=== PATIENT | male | born 1985 | race Caucasian/White ===

== ENCOUNTER 2024-07-06 | Emergency (ER) | payer BC, SELFPAY ==
[2024-07-06 00:04] VITALS: BP 145/91; PULSE 85; RESP 20; TEMP 36.6; O2SAT 96
--- NOTE | 2024-07-06 01:31 | ED.EYEPROB ---
HPI - Eye Problem General Chief complaint: Eye Problems Stated complaint: Right eye drainage, congestion, ear pain, [place] Time Seen by Provider: 07/06/24 01:24 History of Present Illness HPI Narrative: Patient presents here with 1 day of right eye drainage, he woke up and noticed there was lot of greenish gunk, was able to wipe some of it off, eye is slightly irritated; no recent trauma, no vision changes. Started to feel like it's going to the left eye also. Also having some pain to his ears, he has long history of ear infections. Related Data Allergies Allergy/AdvReac Type Severity Reaction Status Date / Time acetaminophen (From Percocet) Allergy Intermediate Hives Verified 07/06/24 00:07 oxycodone (From Percocet) Allergy Intermediate Hives Verified 07/06/24 00:07 Review of Systems Review of Systems: All systems reviewed & are unremarkable except as noted in HPI and below Exam Narrative: EXAMINATION OF ORGAN SYSTEMS/BODY AREAS: Constitutional: Vital signs per nursing GENERAL:[No acute distress, non-toxic appearing.] HEAD: Normal with no signs of head trauma. EYES: EOMI, injected conjunctiva bilaterally, right more than left, with some greenish discharge from the right eye, PERRL, VA intact ENT: Bulging erythematous left TM LUNGS: Nonlabored breathing. HEART: [Regular rate and rhythm] ABD: [Soft], [nontender to palpation] EXT: Normal range of motion SKIN: [No rashes or lesions.] NEURO: [Alert and oriented x 3. No gross focal sensory or strength deficits.] PSYCH: Normal affect Course Vital Signs Vital signs: Vital Signs Temperature 97.8 F 07/06/24 00:04 Pulse Rate 85 07/06/24 00:04 Respiratory Rate 20 07/06/24 00:04 Blood Pressure 145/91 H 07/06/24 00:04 Pulse Oximetry 96 07/06/24 00:04 Oxygen Delivery Room Air 07/06/24 00:04 Temperature 97.8 F 07/06/24 00:04 Pulse Rate 85 07/06/24 00:04 Respiratory Rate 20 07/06/24 00:04 Blood Pressure 145/91 H 07/06/24 00:04 Pulse Oximetry 96 07/06/24 00:04 Oxygen Delivery Room Air 07/06/24 00:04 MDM - Eye Problem MDM Narrative Medical decision making narrative: Patient presents here with right eye drainage, and ear pain. EOMI, injected conjunctiva bilaterally, right more than left, with some greenish discharge from the right eye, PERRL, VA intact L TM bulging Viral swabs neg. Symptoms consistent with conjunctivitis, will start ointment and antibiotics for eye and ear infection. Asked patient to follow-up with his PCP and return for any further issues especially if he has any changes in his vision or new eye pain. Lab Data Labs: Lab Results 07/06/24 Range/Units 01:20 Influenza A (RT-PCR) Negative (Negative) Influenza B (RT-PCR) Negative (Negative) RSV (RT-PCR) Negative (Negative) SARS-CoV-2 RNA (RT-PCR) Negative (Negative) Discharge Plan Discharge Clinical Impression: Conjunctivitis, Acute otitis media Patient Disposition: Home, Self-Care Condition: Stable Instructions: Ear Infection (ED), Conjunctivitis (ED) Additional Instructions: Please follow up with your doctor; you can always return for any further issues, especially if you have new pain to your eye or changes in your vision, go to the nearest emergency room immediately. Patient Language: Vietnamese Prescriptions: New ofloxacin 0.3 % drops 1 drp EACH EYE QID Qty: 5 0RF azithromycin 250 mg tablet 250 mg PO DAILY 4 Days Qty: 4 0RF Rx Instructions: start on day 2 of therapy fluticasone propionate [Allergy Relief (fluticasone)] 50 mcg/actuation spray,suspension 1 spray intranasal DAILY Qty: 16 0RF Rx Instructions: administer into each nostril Follow-up/Referrals: PHYSICIAN NOT ON STAFF,NONSTAFF [Primary Care Provider] -
--- OUTSIDE RECORDS SUMMARY | 2024-07-06 01:34 | XMS_ITS | Clinical Summary ---
Author Organization [facility] Address [address] [place] [address] Care Team Providers Care Marketing Automation Manager Name Role Phone Filippo Waite MD Primary Care Pro vider Allergies Active Allergy Reactions Criticality Noted Date Comments Oxycodone-Acetaminophen Hives Medium Medications albuterol sulfate 90 mcg/actuation aerosol powdr breath activated Inhale 180 mcg every 4 (four) hours Active omeprazole (PriLOSEC) 40 mg capsule Take 1 capsule (40 mg total) by mouth daily Take 30 min before breakfast 30 capsule 9 Active fluticasone propion-salmete rol (ADVAIR DISKUS) 250-50 mcg/dose diskus inhaler Inhale 1 puff 2 (two) times a day Rinse mouth with water after use. Do not swallow. Active acetaminophen (TYLENOL) 500 mg tablet Take 1 tablet (500 mg total) by mouth every 6 (six) hours as needed for pain 30 tablet 3 Active famotidine (PEPCID) 20 mg tablet Take 1 tablet (20 mg total) by mouth 2 (two) times a day 30 tablet 3 Active clonazePAM (KlonoPIN) 0.5 mg tablet Take 1 tablet (0.5 mg total) by mouth 2 (two) times a day 3 Active fluticasone propionate (FLONASE) 50 mcg/actuation nasal spray Administer 2 sprays into affected nostril(s) daily 2 Active Active Problems Problem Noted Date Diagnosed Date Treviño's esophagus with dysplasia 05/03/2019 Overview (05/03/2019): Added automatically from request for surgery [id number] Chronic gastritis without bleeding 03/08/2019 Overview (03/08/2019): Added automatically from request for surgery [id number] Chronic gastritis 10/25/2018 Overview (10/25/2018): Added automatically from request for surgery [id number] Nasal foreign body, initial encounter 08/05/2017 Surgical History Surgery Date Site/Laterality Comments ORAL SURGERY INCISION AND DRAINAGE 05/22/2012 - 05/21/2013 Left ; left lower leg UMBILICAL HERNIA REPAIR 03/22/2018 - 04/20/2018 UPPER GASTROINTESTINAL ENDOSCOPY Medical History Medical History Date Comments GERD (gastroesophageal reflux disease) History of bronchitis Current every day smoker Esophagitis 10/2018 Asthma Kidney stone Treviño's esophagus Hyperlipidemia Depression Family History Medical History Relation Name Comments Hypothyroidism Mother Asthma Neg Hx Coronary artery disease Neg Hx Stroke Neg Hx Relation Name Status Comments Mother Social History Tobacco Use Types Packs/Day Years Used Date Smoking Tobacco: Every Day Cigarettes 1 10 Smokeless Tobacco: Never Tobacco Cessation:Ready to Q uit: Not Asked; Counseling Given: Not Answered Comments:Typically use 1 pack per day for 10 years Alcohol Use Standard Drinks/Week Comments No 0 (1 standard drink = 0.6 oz pur e alcohol) Personal Safety Answer Date Recorded Getting School Help Needed Not on file 01/06 Sex and Gender Information Value Date Recorded Sex Assigned at Not on file Legal Sex 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 Gender Identity Not on file Sexual Orientation Not on file 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 Not on file Not on file Not o n file Obstetrics History Last Filed Vital Signs Vital Sign Reading Time Taken Comments Blood Pressure 124/81 01/04/2023 9:10 AM CDT Pulse 73 01/04/2023 9:10 AM CDT Temperature 36.2 C (97.2 F) 01/04/2023 8:50 AM CDT Respiratory Rate 22 01/04/2023 9:10 AM CDT Oxygen Saturation 98% 01/04/2023 9:10 AM CDT Inhaled Oxygen Concentration - - Weight 86.2 kg (190 lb) 01/04/2023 7:46 AM CDT Height 180.3 cm (5' 11 ) 01/04/2023 7:46 AM CDT Body Mass Index 26.5 01/04/2023 7:46 AM CDT Plan of Treatment Health Maintenance Due Date Last Done Comments Depression Screening 1985 Hepatitis C Screening 1985 Pneumococcal vaccine <65 (1 of 2 - PCV) 1992 Varicella Vaccines (1 of 2 - 13+ 2-dose series) 08/23/1999 Regular Well Visit/Exam 18-64 2004 DTaP/Tdap/Td Vaccine (2 - Td or Tdap) 04/29/2023 04/29/2013 Influenza Vaccine (#1) 2024 8, 01/07/2017 Hepatitis B Screening Completed 09/16/1999 HPV Vaccines Aged Out No longer eligi ble based on patient's age to complete this topic Insurance Space Pencil OPEN ACCESS CIG [facility] COMMERCIAL GENERIC CIGNA [facility] ANTHEM ACCESS CHOICE BLUE ACC CHOICE OOS [facility] [facility] CHOICE OOS [employer] [facility] CHOICE OOS Advance Directives For more information, please contact: [phone] * Full Code (Latest Code Status on File) Date Activated Date Inactivated Comments 01/04/2023 7:41 AM 01/04/2023 1:33 PM * Full Code Date Activated Date Inactivated Comments 05/31/2019 7:33 AM 05/31/2019 1:06 PM * Full Code Date Activated Date Inactivated Comments 03/14/2019 6:41 AM 03/14/2019 12:42 PM * Full Code Date Activated Date Inactivated Comments 10/31/2018 8:01 AM 10/31/2018 1:56 PM Care Teams Marketing Automation Manager Relationship Specialty [place] [address] [facility] [address] [place] [address] PCP - General Internal Medicine 07/18/22
--- OUTSIDE RECORDS SUMMARY | 2024-07-06 01:34 | XMS_ITS | Encounter Summary ---
Author Organization [facility] Address [address] [place] [address] Phone Care Team Providers Care Steel Buffer Name Role Phone No, Physician Primary Care Provider [phone] Pema Redd MD Primary Care Provider [phone] No, Physician Primary Care Provider Physician, None Primary Care Provider Filippo Rascon MD Primary Care Pro vider Encounter Details Date Type Department Care Team (Late st Contact Info) Description 03/14/2019 Orders Only [facility] Scanning, Provider Social History Tobacco Use Types Packs/Day Years Used Date Smoking Tobacco: Every Day Cigarettes Smokeless Tobacco: Never Alcohol Use Standard Drinks/Week Comments No 0 (1 standard drink = 0.6 oz pur e alcohol) Sex and Gender Information Value Date Recorded Sex Assigned at Not on file Legal Sex Male 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 Gender Identity Not on file Sexual Orientation Not on file 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 Needs nasal swabs x2 and swabs of any chronic open wounds. Sue Begumd, SCHOOL CLEANER 10/22/2018 10/31/18 nares MRSA PCR= negative 03/14/19 nares MRSA PCR= negative 05/02/2013 05/02/20132018 7:33 AM CDT COVID: Suspected 05/04/2020 05/04/2020 05/04/2020 10:35 AM CRYSTALLOGRAPHER Respiratory Infection (RENARD), contact + droplet Comment:Automatically added due to negative COVID-19 result. 05/04/2020 05/04/2020 05/18/2020 3:0 6 AM CRYSTALLOGRAPHER COVID19 Comment:Added from the Screening question BPA, identifying patients that tested positive for COVID in the last 14 days and the result is from a facility outside [facility] . 07/18/2022 07/18/2022 07/28/2022 3:05 AM CRYSTALLOGRAPHER documented as of this encounter Care Teams Steel Buffer Relationship Specialty Start Date End Date No, Physician PCP - General 08/05/17 05/29/19 Pema Redd MD PCP - General 05/30/19 05/30/19 No, Physician PCP - General 05/31/19 05/03/20 Physician, [place] [address] PCP - General 05/04/20 07/17/22 [place] [id number] [facility] [address] [place] [address] PCP - General Internal Medicine 07/18/22 documented as of this encounter
--- OUTSIDE RECORDS SUMMARY | 2024-07-06 01:34 | XMS_ITS | Referral Summary ---
Author Organization [facility] Address [address] [place] [address] Care Team Providers Care Irrigator Head Name Role Phone Unavailable Primary Care Provider Unavailabl e Source Comments [facility],non-owned Affiliates and Associated Physician Practices is amultiple site organization consisting of ambulatory clinics and hospital sitesin [place], [place], [place] and [place]. This disclosure is being madepursuant to the Care Everywhere program and may not contain all information available regarding this patient. Last updated 18.[facility] Allergies Active Allergy Reactions Criticality Noted Date Comments Oxycodone-Acetaminophen Rash Medium 06/09/2018 Medications * Be aware that medications may not be up to date on this document. Alwaysverify current medications with the patient. Medication Sig Dispensed Refills Start Date End Date Status omeprazole (PRILOSEC) 20 MG capsule Take 20 mg by mouth daily before breakfast Active Immunizations Name Administration Dates Next Due TDAP (7yrs+) 04/29/2013 Social History Tobacco Use Types Packs/Day Years Used Date Smoking Tobacco: Every Day Smokeless Tobacco: Never Alcohol Use Standard Drinks/Week Comments Yes 0 (1 standard drink = 0.6 oz pur e alcohol) Sex and Gender Information Value Date Recorded Sex Assigned at Not on file Gender Identity Not on file Sexual Orientation Not on file Last Filed Vital Signs Vital Sign Reading Time Taken Comments Blood Pressure 144/91 02/27/2019 3:27 AM CDT Pulse 56 02/27/2019 4:23 AM CDT Temperature 36.7 C (98 F) 02/27/2019 3:27 AM CDT Respiratory Rate 18 02/27/2019 4:13 AM CDT Oxygen Saturation 99% 02/27/2019 4:42 AM CDT Inhaled Oxygen Concentration 21% 02/27/2019 4 :13 AM CDT Weight 86.2 kg (190 lb) 02/27/2019 3:27 AM CDT Height 182.9 cm (6') 02/27/2019 3:27 AM CDT Body Mass Index 25.77 02/27/2019 3:27 AM CDT Plan of Treatment Not on file Dougie Gipson Personal/Family Self 1985 [address] [place] [address]
--- OUTSIDE RECORDS SUMMARY | 2024-07-06 01:34 | XMS_ITS | Patient Health Summary ---
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 Tendon involvement: none Nerve involvement: none Vascular damage: no Anesthesia: local infiltration Local anesthetic: lidocaine 1% without epinephrine Patient sedated: no Preparation: Patient was prepped and draped in the usual sterile fashion. Amount of cleaning: standard Debridement: none Degree of undermining: none Mucous membrane closure: 6-0 Chromic gut Number of sutures: 2 Technique: simple Approximation: close Approximation difficulty: simple Patient tolerance: Patient tolerated the procedure well with no immediate complications Lab Interpretation Oxygen Saturation Interpretation The oxygen saturation level is: 99%. The patient was on Room Air for the saturation measurement. Measurement frequency: Spot Check. Oxygen saturation interpretation is Normal. Intervention(s) used: None. No results found for this visit on 11/09/13. CT HEAD NON CONTRAST (Canceled) CT BRAIN FACIAL BONES WO CONTRAST (Results Pending) Result: No Fracture. Minimal mucosal thickening in the paranasal sinuses bilaterally. No air-fluid levels. There may be some mild edema in the permandibular subcutaneous soft tissues bilaterally. Mild cellulitis possible. No CT evidence of acute intracranial hemorrhage or skull fracture. Progress Notes 2:09 AM: Recheck on patient at this time. I have informed the pt of the results and the diagnosis for the patient's discharge. I have given instructions regarding the diagnosis as well as any return precautions and have supplemented the patient with follow up instructions. Any medications given to patient are to be taken accordingly. Patient agrees with plan for discharge and all questions and concerns have been addressed at this point. [place] [id number] [address] [id number] Call in 1 day New Prescriptions CEPHALEXIN (KEFLEX) 500 MG CAPSULE Take 1 Cap by mouth 4 times daily for 5 days. NAPROXEN (NAPROSYN) 500 MG TABLET Take 1 Tab by mouth 2 times daily as needed for Pain. ED Course Medical Decision Making I have reviewed the: Previous Chart, Nursing Notes and Vitals. I have interpreted the following results: CT Scans and Oxygen Saturation. Orders Placed This Encounter ED LACERATION REPAIR ED LACERATION REPAIR CT BRAIN FACIAL BONES WO CONTRAST lidocaine (XYLOCAINE) 1% injection ADS Med naproxen (NAPROSYN) 500 MG tablet cephALEXin (KEFLEX) 500 MG capsule Clinical Impression Encounter Diagnoses Name Primary? Trauma Laceration of lip, initial encounter 2:09 AM Patient is discharged in stable condition. At the present time, a medical screening exam has been completed. It is determined that the patient does not have an emergency medical condition, and is stable for discharge. Disposition: Discharged I have reviewed the information recorded by the scribe and agree with its accuracy and contents--Dr. Pate Transcribed by Matt Gatica acting scribe on behalf of Dr. Pate Korey Pate MD PROCEDURE/MINOR SURG ICAL ORDERABLES * CT BRAIN FACIAL BONES WO CONTRAST (11/10/2013 1:32 AM CDT) Anatomical Region Laterality Modality Head Computed Tomogra phy 11/10/2013 7:28 AM CDT Narrative 11/10/2013 8:[address] BRAIN AND FACIAL BONES HISTORY: Injury and bleeding. TECHNIQUE: Multiple contiguous axial images of the brain and facial bones were obtained without contrast. CT FACIAL BONES: There is mucous membrane thickening and questionable polyp within the left maxillary sinus and minimal mucous membrane thickening in the right maxillary sinus. Paranasal sinuses and mastoid air cells are normal. There is no evidence of fracture or dislocation. DIAGNOSIS: Minimal bilateral maxillary sinus disease. CT BRAIN: There is no mass or hemorrhage or midline shift. Cerebral sulci and ventricles are normal. Shea-white differentiation is preserved DIAGNOSIS: No acute intracranial process. Edited by Sandra Mckeon on 11/10/2013 7:51 AM Procedure Note Petar Martinez MD - 11/10/2013 CT BRAIN AND FACIAL BONES HISTORY: Injury and bleeding. TECHNIQUE: Multiple contiguous axial images of the brain and facial bones were obtained without contrast. CT FACIAL BONES: There is mucous membrane thickening and questionable polyp within the left maxillary sinus and minimal mucous membrane thickening in the right maxillary sinus. Paranasal sinuses and mastoid air cells are normal. There is no evidence of fracture or dislocation. DIAGNOSIS: Minimal bilateral maxillary sinus disease. CT BRAIN: There is no mass or hemorrhage or midline shift. Cerebral sulci and ventricles are normal. Shea-white differentiation is preserved DIAGNOSIS: No acute intracranial process. Edited by Sandra Mckeon on 11/10/2013 7:51 AM Korey Pate MD CT ORDERABLES * ED INCISION AND DRAINAGE (04/29/2013 4:59 PM DIRECTOR OF EMPLOYER SERVICES) Narrative Korey Pate MD - 04/29/2013 4:59 PM DIRECTOR OF EMPLOYER SERVICES Korey Pate MD 04/29/2013 4:59 PM Provider contact with the patient: 04/29/2013 16:38 Dougie Gipson [id number] [facility] History Chief Complaint Patient presents with Abscess left leg abscess x 5 days, progressively getting larger, given antibiotics, no relief Abscess The history is provided by the patient. This is a new problem. The current episode started less than one week ago. The onset was gradual. The problem occurs continuously. The problem has been gradually worsening. The abscess location is on the left leg.The problem is mild. The abscess is characterized by itchiness, redness, painfulness, draining and swelling. It is unknown what he was exposed to. There has been no fever.The relevant past medical history includes abscess.His tetanus status is out of date. The symptoms are aggravated by squeezing. The symptoms are relieved by drainage. He has tried antibiotics (Bactrim) for the symptoms. The treatment provided no relief. No past medical history on file. No past surgical history on file. No family history on file. History Social History Marital Status: Single Spouse Name: N/A Number of Children: N/A Years of Education: N/A Occupational History Not on file. Social History Main Topics Smoking status: Not on file Smokeless tobacco: Not on file Alcohol Use: Not on file Drug Use: Not on file Sexually Active: Not on file Other Topics Concern Not on file Social History Narrative No narrative on file Review of Systems Review of Systems Constitutional: Negative for fever and chills. Eyes: Negative for blurred vision, double vision and redness. Respiratory: Negative for cough and shortness of breath. Cardiovascular: Negative for chest pain and palpitations. Gastrointestinal: Negative for nausea, vomiting and diarrhea. Genitourinary: Negative for urgency, frequency and hematuria. Neurological: Negative for tingling, sensory change and headaches. All other systems reviewed and are negative. Physical Exam BP 131/71 Pulse 80 Temp 98.3 F Resp 18 Ht 1.803 m (5' 11 ) Wt 79.379 kg (175 lb) BMI 24.41 kg/m2 SpO2 100% Physical Exam Nursing note and vitals reviewed. Constitutional: He is oriented to person, place, and time and well-developed, well-nourished, and in no distress. HENT: Head: Normocephalic and atraumatic. Right Ear: External ear normal. Left Ear: External ear normal. Nose: Nose normal. Mouth/Throat: Oropharynx is clear and moist. No oropharyngeal exudate. Eyes: Conjunctivae normal and EOM are normal. Pupils are equal, round, and reactive to light. Neck: Normal range of motion. Neck supple. Cardiovascular: Normal rate, regular rhythm, normal heart sounds and intact distal pulses. Pulmonary/Chest: Effort normal and breath sounds normal. Abdominal: Soft. Bowel sounds are normal. Musculoskeletal: Normal range of motion. Neurological: He is alert and oriented to person, place, and time. GCS score is 15. Skin: Skin is warm and dry. Medications Current Outpatient Prescriptions Medication Status Sig Dispense Refill traMADol (ULTRAM) 50 MG tablet Active Take 1 Tab by mouth every 4 hours as needed for Pain for 10 days. 20 Tab 0 oxycodone-aspirin (PERCODAN) 4.5-0.38-325 MG tablet Active Take 1 Tab by mouth every 4 hours as needed for Pain. 20 0 Procedures Incision and Drainage Date/Time: 04/29/2013 4:58 PM Performed by: KOREY PATE Authorized by: KOREY PATE Consent: Verbal consent obtained. Written consent obtained. Risks and benefits: risks, benefits and alternatives were discussed Consent given by: patient Patient understanding: patient states understanding of the procedure being performed Patient consent: the patient's understanding of the procedure matches consent given Site marked: the operative site was marked Required items: required blood products, implants, devices, and special equipment available Patient identity confirmed: verbally with patient and arm band Type: abscess Body area: lower extremity Location details: left leg Anesthesia: local infiltration Local anesthetic: lidocaine 1% without epinephrine Anesthetic total: 2 ml Patient sedated: no Scalpel size: 11 Incision type: single straight Complexity: simple Drainage amount: scant Wound treatment: wound left open Packing material: none Patient tolerance: Patient tolerated the procedure well with no immediate complications. EKG Interpretation Lab/SPO2 Interpretation Results for orders placed during the hospital encounter of 04/29/13 CBC W AUTO DIFFERENTIAL Component Value Range WBC 10.3 4.4-10.7 x10^9/L RBC 4.89 3.80-5.40 x10^12/L Hgb 15.2 12.0-17.6 gm/dL HCT 43.5 35.2-51.7 % MCV 89.0 80.7-98.3 fl MCH 31.1 26.7-34.0 pg MCHC 34.9 30.8-35.9 gm/dL Plt Ct 213 153-416 x10^9/L RDW-CV 13.0 12.1-14.9 % MPV 10.9 9.4-12.9 fl Neutro 69.1 44.0-73.0 % Lymph 22.5 20.0-43.0 % Bath 7.3 5.0-13.0 % Eos 0.8 0.0-6.0 % Baso 0.2 0.0-2.0 % Immature Grans 0.1 0-1 % Neutro Abs 7.14 2.01-7.14 x10^9/L Lymph Abs 2.32 1.07-3.94 x10^9/L Bath Abs 0.75 0.26-1.07 x10^9/L Eosin Abs 0.08 0-0.47 x10^9/L Baso Abs 0.02 0-0.08 x10^9/L Immature Grans Abs 0.01 0.00-0.06 x10^9/L NRBC Auto 0 Progress Notes 4:59 PM will d/c home to f/u w pcp. Will cont Bactrim as prescribed. 4:59 PM: At this present time, a medical screening exam has been completed. It is determined that the patient does not have an emergency medical condition and is stable for discharge. New Prescriptions TRAMADOL (ULTRAM) 50 MG TABLET Take 1 Tab by mouth every 4 hours as needed for Pain for 10 days. Follow-up with: [facility] [id number] [facility] [id number] Call in 1 day DISCHARGED HOME ED Course Medical Decision Making I have reviewed the: Previous Chart, Nursing Notes and Vitals. I have interpreted the following results: Labs and Oxygen Saturation. Orders Placed This Encounter ED INCISION AND DRAINAGE CBC W AUTO DIFFERENTIAL lidocaine (XYLOCAINE) 1% injection ADS Med gqivmzg-yctyax-zfszb pertussis (BOOSTRIX) injection 0.5 mL traMADol (ULTRAM) 50 MG tablet Clinical Impression Encounter Diagnosis Name Primary? Abscess of left leg Yes Procedure Note Korey Pate MD - 04/29/2013 4:38 PM CST Images from the original note were not included. Provider contact with the patient: 04/29/2013 16:38 Dougie Gipson [id number] [facility] History Chief Complaint Patient presents with Abscess left leg abscess x 5 days, progressively getting larger, givenantibiotics, no relief Abscess The history is provided by the patient. This is a new problem. The currentepisode started less than one week ago. The onset was gradual. The problemoccurs continuously. The problem has been gradually worsening. The abscesslocation is on the left leg.The problem is mild. The abscess ischaracterized by itchiness, redness, painfulness, draining and swelling.It is unknown what he was exposed to. There has been no fever.The relevantpast medical history includes abscess.His tetanus status is out of date.The symptoms are aggravated by squeezing. The symptoms are relieved bydrainage. He has tried antibiotics (Bactrim) for the symptoms. Thetreatment provided no relief. No past medical history on file. No past surgical history on file. No family history on file. History Social History Marital Status: Single Spouse Name: N/A Number of Children: N/A Years of Education: N/A Occupational History Not on file. Social History Main Topics Smoking status: Not on file Smokeless tobacco: Not on file Alcohol Use: Not on file Drug Use: Not on file Sexually Active: Not on file Other Topics Concern Not on file Social History Narrative No narrative on file Review of Systems Review of Systems Constitutional: Negative for fever and chills. Eyes: Negative for blurred vision, double vision and redness. Respiratory: Negative for cough and shortness of breath. Cardiovascular: Negative for chest pain and palpitations. Gastrointestinal: Negative for nausea, vomiting and diarrhea. Genitourinary: Negative for urgency, frequency and hematuria. Neurological: Negative for tingling, sensory change and headaches. All other systems reviewed and are negative. Physical Exam BP 131/71 Pulse 80 Temp 98.3 F Resp 18 Ht 1.803 m (5' 11 ) Wt79.379 kg (175 lb) BMI 24.41 kg/m2 SpO2 100% Physical Exam Nursing note and vitals reviewed. Constitutional: He is oriented to person, place, and time andwell-developed, well-nourished, and in no distress. HENT: Head: Normocephalic and atraumatic. Right Ear: External ear normal. Left Ear: External ear normal. Nose: Nose normal. Mouth/Throat: Oropharynx is clear and moist. No oropharyngeal exudate. Eyes: Conjunctivae normal and EOM are normal. Pupils are equal, round, andreactive to light. Neck: Normal range of motion. Neck supple. Cardiovascular: Normal rate, regular rhythm, normal heart sounds andintact distal pulses. Pulmonary/Chest: Effort normal and breath sounds normal. Abdominal: Soft. Bowel sounds are normal. Musculoskeletal: Normal range of motion. Neurological: He is alert and oriented to person, place, and time. GCSscore is 15. Skin: Skin is warm and dry. Medications Current Outpatient Prescriptions Medication Status Sig Dispense Refill traMADol (ULTRAM) 50 MG tablet Active Take 1 Tab by mouth every 4 hoursas needed for Pain for 10 days. 20 Tab 0 oxycodone-aspirin (PERCODAN) 4.5-0.38-325 MG tablet Active Take 1 Tab bymouth every 4 hours as needed for Pain. 20 0 Procedures Incision and Drainage Date/Time: 04/29/2013 4:58 PM Performed by: KOREY PATE Authorized by: KOREY PATE Consent: Verbal consent obtained. Written consent obtained. Risks and benefits: risks, benefits and alternatives were discussed Consent given by: patient Patient understanding: patient states understanding of the procedure beingperformed Patient consent: the patient's understanding of the procedure matchesconsent given Site marked: the operative site was marked Required items: required blood products, implants, devices, and specialequipment available Patient identity confirmed: verbally with patient and arm band Type: abscess Body area: lower extremity Location details: left leg Anesthesia: local infiltration Local anesthetic: lidocaine 1% without epinephrine Anesthetic total: 2 ml Patient sedated: no Scalpel size: 11 Incision type: single straight Complexity: simple Drainage amount: scant Wound treatment: wound left open Packing material: none Patient tolerance: Patient tolerated the procedure well with no immediatecomplications. EKG Interpretation Lab/SPO2 Interpretation Results for orders placed during the hospital encounter of 04/29/13 CBC W AUTO DIFFERENTIAL Component Value Range WBC 10.3 4.4-10.7 x10^9/L RBC 4.89 3.80-5.40 x10^12/L Hgb 15.2 12.0-17.6 gm/dL HCT 43.5 35.2-51.7 % MCV 89.0 80.7-98.3 fl MCH 31.1 26.7-34.0 pg MCHC 34.9 30.8-35.9 gm/dL Plt Ct 213 153-416 x10^9/L RDW-CV 13.0 12.1-14.9 % MPV 10.9 9.4-12.9 fl Neutro 69.1 44.0-73.0 % Lymph 22.5 20.0-43.0 % Bath 7.3 5.0-13.0 % Eos 0.8 0.0-6.0 % Baso 0.2 0.0-2.0 % Immature Grans 0.1 0-1 % Neutro Abs 7.14 2.01-7.14 x10^9/L Lymph Abs 2.32 1.07-3.94 x10^9/L Bath Abs 0.75 0.26-1.07 x10^9/L Eosin Abs 0.08 0-0.47 x10^9/L Baso Abs 0.02 0-0.08 x10^9/L Immature Grans Abs 0.01 0.00-0.06 x10^9/L NRBC Auto 0 Progress Notes 4:59 PM will d/c home to f/u w pcp. Will cont Bactrim as prescribed. 4:59 PM: At this present time, a medical screening exam has beencompleted. It is determined that the patient does not have an emergencymedical condition and is stable for discharge. New Prescriptions TRAMADOL (ULTRAM) 50 MG TABLET Take 1 Tab by mouth every 4 hours asneeded for Pain for 10 days. Follow-up with: [facility] [id number] [facility] [id number] Call in 1 day DISCHARGED HOME ED Course Medical Decision Making I have reviewed the: Previous Chart, Nursing Notes and Vitals. I have interpreted the following results: Labs and Oxygen Saturation. Orders Placed This Encounter ED INCISION AND DRAINAGE CBC W AUTO DIFFERENTIAL lidocaine (XYLOCAINE) 1% injection ADS Med obwyxey-hsuegc-qxezs pertussis (BOOSTRIX) injection 0.5 mL traMADol (ULTRAM) 50 MG tablet Clinical Impression Encounter Diagnosis Name Primary? Abscess of left leg Yes Korey Pate MD PROCEDURE/MINOR SURG ICAL ORDERABLES
--- OUTSIDE RECORDS SUMMARY | 2024-07-06 01:34 | XMS_ITS | Clinical Summary ---
Author Organization [facility] Address [address] [place] [address] Care Team Providers Care Shopper Marketing Manager Name Role Phone Unavailable Primary Care Provider Unavailabl e Source Comments [facility],non-owned Affiliates and Associated Physician Practices is amultiple site organization consisting of ambulatory clinics and hospital sitesin [place], [place], [place] and [place]. This disclosure is being madepursuant to the Care Everywhere program and may not contain all information available regarding this patient. Last updated 18.[facility] Allergies Active Allergy Reactions Criticality Noted Date [...] 02/27/2019 3:27 AM CDT Plan of Treatment Health Maintenance Due Date Last Done Comments HIV SCREENING 2001 HEPATITIS C SCREENING 08/17/2004 HEPATITIS B VACCINE (1 of 3 - 19+ 3-dose series) 2005 PNEUMOCOCCAL VACCINE (1 of 2 - PCV) 2005 DTAP/TDAP/TD VACCINES (2 - T d or Tdap) 04/29/2023 04/29/2013 COVID-19 VACCINE (1 - 2023-2 5 season) 2024 INFLUENZA VACCINE (#1) 2024 , 01/07/2017 DEPRESSION SCREENING 05/22/2024 ZOSTER VACCINE (1 of 2) 2036 HIB VACCINE Aged Out No longer eligi ble based on patient's age to complete this topic HPV VACCINE Aged Out No longer eligi ble based on patient's age to complete this topic MENINGOCOCCAL (Group B) VACCINE Aged Out No longer eligible b ased on patient's age to complete this topic MENINGOCOCCAL VACCINE Aged Out No antonette sophy eligible based on patient's age to complete this topic Dougie Gipson Personal/Family Self [phone] [place] [address]
--- OUTSIDE RECORDS SUMMARY | 2024-07-06 01:34 | XMS_ITS | Referral Summary ---
Author Organization [facility] Address [address] [place] [address] Care Team Providers Care Hospice Volunteer Name Role Phone Filippo Waite MD Primary [...] (05/03/2019): Added automatically from request for surgery [id number] Chronic gastritis without bleeding 03/08/2019 Overview (03/08/2019): Added automatically from request for surgery [id number] Chronic gastritis 10/25/2018 Overview (10/25/2018): Added automatically from request for surgery [id number] Nasal foreign body, initial encounter 08/05/2017 Social History Tobacco Use Types Packs/Day Years [...] on file 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 Gender Identity Not on file Sexual Orientation Not on file 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 on file Not on file Not o n file Last Filed Vital Signs Vital Sign [...] 01/04/2023 7:46 AM CDT Plan of Treatment Not on file Insurance [employer] OPEN ACCESS [employer] C[employer]ER[employer] GENERIC Member Subscriber Plan / Payer ( fective 2018-Present) Name:Mando Guillen Relation to Subscriber:Self Name:Mando Guillen Payer ID:[id number] Type:COMMERCIAL Address: [address] [place] [id number] [employer] [facility] ACCESS CHOICE Member Subscriber Plan / Payer (Ef fective 2018-Present) Name:Mando Guillen Relation to Subscriber:Self Name:Mando Guillen Payer ID:[id number] (NAIC) Type:TravelAI Address: [address] CHOICE OOS BLUE [facility] CHOICE OOS BLUE ACC CHOICE OOS Advance Directives For more information, please contact: [phone] * Full Code (Latest Code Status on File) Date Activated Date Inactivated Comments 01/04/2023 7:41 AM 01/04/2023 1:33 PM * Full Code Date Activated Date Inactivated Comments 05/31/2019 7:33 AM 05/31/2019 1:06 PM * Full Code Date Activated Date Inactivated Comments 03/14/2019 6:41 AM 03/14/2019 12:42 PM * Full Code Date Activated Date Inactivated Comments 10/31/2018 8:01 AM 10/31/2018 1:56 PM Care Teams Hospice Volunteer Relationship Specialty [place] [id number] [place] [address] PCP - General Internal Medicine 07/18/22
--- OUTSIDE RECORDS SUMMARY | 2024-07-06 01:34 | XMS_ITS | Clinical Summary ---
Author Organization [facility] Address [address] [place] [address] Care Team Providers Care Engineering Associate Name Role Phone Filippo Waite MD Primary Care Provider [phone] Allergies Active Allergy Reactions Criticality Noted Date Comments Amoxicillin-Pot Clavulanate Abdominal Pain Medium 03/31/2021 Oxycodone-Acetaminophen Hives,Itching High 6 Sertraline Hallucination High 12/20/2022 Really bad night rich Medications albuterol sulfate 90 mcg/Actuation inhalerIndicat ions:Cough Take 2 to 4 puffs by inhalation every 4 hours as needed for cough, shortness of breath, or wheezing 8.5 Gram Active albuterol (PROVENTIL,DE TOLIN) 2.5 mg /3 mL (0.083 %) Solution for NebulizationIn dications:Mode rate persistent asthma, unspecified whether complicated Take 3 mL (2.5 mg) by inhalation every 6 hours as needed for Shortness of Breath. 90 mL Active Additional Information Patient taking differently:2.5 mg InhalationEVERY 4 HOURS PRN RESPIRATORY, Shortness of Breath, Reported on 08/08/2022 omeprazole (PriLOSEC) 40 mg Capsule, Delayed Release(E.C.)I ndications:Bar rett's esophagus without dysplasia,Sergio roesophageal reflux disease with esophagitis Take 1 Capsule (40 mg) by mouth daily. TAKES IN AFTERNOON 90 Capsule Active fluticasone propionate (FLONASE) 50 mcg/spray [place], Suspension nasal inhaler Administer 2 Sprays in each nostril daily. 16 Gram 022 Active acetaminophen (TYLENOL) 500 mg tablet Take 1,500 mg by mouth every 4 hours as needed. 023 Active nicotine (NICODERM CQ) 7 mg/24 hr patchIndicatio ns:Tobacco use Apply 1 Patch to skin as directed every 24 hours. 14 Patch 023 Active fluticasone propion-salmet Gian (ADVAIR DISKUS,WIXELA INHUB) 500-50 mcg/dose disk inhalerIndicat ions:Asthma, unspecified asthma severity, unspecified whether complicated, unspecified whether persistent Take 1 Puff by inhalation 2 times daily. 60 Each 5 024 Active guaiFENesin (MUCINEX) 600 mg Extended Release Biphasic tabletIndicati ons:Chronic sinusitis, unspecified location Take 1 Tablet (600 mg) by mouth 2 times daily. 40 Tablet 024 Active varenicline (CHANTIX) 0.5 mg (11)- 1 mg (42) tablets STARTER dose packIndication s:Tobacco use Take as directed on package. 53 Tablet 024 Active sodium chloride (OCEAN) 0.65 % Aerosol, [place] Administer 2 Sprays in each nostril PRN for Allergies. In each nostril helps with ear problem Active lamoTRIgine (LaMICtal) 100 mg tabletIndicati ons:Moderate episode of recurrent major depressive disorder (CMS/HCC) Take 1 Tablet (100 mg) by mouth daily. 90 Tablet 3 024 Active chlorhexidine gluconate 0.12 % Mouthwash RINSE AND GARGLE 10 ML BY MOUTH THREE TIMES DAILY 473 mL 3 024 Active clonazePAM (KlonoPIN) 1 mg tabletIndicati ons:Panic attacks TAKE 1 TABLET BY MOUTH THREE TIMES DAILY NEEDED FOR ANXIETY 90 Tablet 025 Active valACYclovir (Valtrex) 1 gram tabletIndicati ons:Cold sore Take 1 Tablet by mouth 2 times daily for 10 days. 20 Tablet 023 2024 Discontinued valACYclovir (VALTREX) 1 gram tabletIndicati ons:Cold sore TAKE 1 TABLET BY MOUTH TWICE DAILY FOR 10 DAYS 20 Tablet 025 2024 Active Problems Problem Noted Date Diagnosed Date Leukocytosis (leucocytosis) 01/19/2021 Enteric intussusception 01/18/2021 Treviño's esophagus without dysplasia 08/08/2019 Prediabetes 05/24/2019 Superficial thrombophlebitis 05/20/2019 Recurrent major depression 05/13/2019 Generalized anxiety disorder 05/13/2019 Panic attacks 05/13/2019 Epididymoorchitis 10/30/2018 Chronic gastritis 10/25/2018 Overview (11/11/2019): Added automatically from request for surgery [id number] Added automatically from request for surgery [id number] Right testicular pain 03/09/2018 Epigastric abdominal pain 03/09/2018 Umbilical hernia without obstruction and without gangrene 03/07/2018 Chronic vomiting 01/07/2016 Gastroesophageal reflux disease 01/06/2016 Tobacco use 01/06/2016 Asthma Encounters Date Type Department Care Team Description 06/23/[address] [address] Filippo Waite MD Cold sore 06/13/2024 External Device Data [facility] ABSTRACTION Provider, Abstract 06/04/2024 External Device Data [facility] Provider, Abstract 05/28/[address] [address] Filippo Waite MD Panic attacks 04/23/[address] [address] Filippo Waite MD 04/20/[address] [phone] Filippo Waite MD Panic attacks from Last 3 Months Immunizations Immunization Administration Dates Next Due (ADACEL/BOOSTRIX)(10 YR UP) TDAP VACCINE, 0.5ML, IM 04/29/2013 (GARDASIL 9)(9-45 YRS) HUMAN PAPILLOMAVIRUS VACCINE, TYPES 6, 11, 16, 18, 31, 33, 45, 52, 58, NONAVALENT (9VHPV), 2 OR 3 DOSE, IM 09/06/2021 (RECOMBIVAX HB/ENGERIX-B)(0- 19 YRS) HEPATITIS B VACCINE 5 MCG/0.5 ML OR 10 MCG/0.5 ML PED OR ADOL 3 DOSE (PF), IM 09/16/1999 INFLUENZA VACCINE QUADRIVALENT 3 YR UP PF IM INFLUENZA VACCINE QUADRIVALENT 6 MOS UP IM 01/07 INFLUENZA VACCINE QUADRIVALENT 6 MOS UP PF IM Family History Medical History Relation Name Comments Heart Disease Father unknown type Breast Cancer Maternal Aunt 1 also in the lymph nodes Cancer Maternal Aunt 2 unknown type , in the bones Other Mother aneurysm in he r stomach Thyroid Disease Mother Graves Celiac Disease Neg Hx Colon Cancer Neg Hx Colon Polyps Neg Hx Crohn's Disease Neg Hx Hemochromatosis Neg Hx Liver Cancer Neg Hx Liver Disease Neg Hx Ovarian Cancer Neg Hx Pancreatic Cancer Neg Hx Ulcerative Colitis Neg Hx Uterine Cancer Neg Hx Relation Name Status Comments Father Maternal Aunt 1 Maternal Aunt 2 Mother Social History Tobacco Use Types Packs/Day Years Used Date Smoking Tobacco: Every Day Cigarettes 1 11 Passive Smoke Exposure: Past Smokeless Tobacco: Never Tobacco Cessation:Ready to Q uit: No; Counseling Given: Yes Alcohol Use Standard Drinks/Week Comments Yes 0 (1 standard drink = 0.6 oz pur e alcohol) socially Feeling Safe Answer Date Recorded Are you in a relationship wi th someone who hurts you emotionally and/or physically? 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 [employer] Gender Identity Not on file Sexual Orientation Not on file Occupation Industry Job Start Date Job End Date [employer]anne Not on file Not on file Not on file Last Filed Vital Signs Vital Sign Reading Time Taken Comments Blood Pressure 122/70 03/05/2024 3:41 PM CDT Pulse 92 03/05/2024 3:41 PM CDT Temperature 36.2 C (97.2 F) 03/05/2024 3:41 PM CDT Respiratory Rate 18 03/05/2024 3:41 PM CDT Oxygen Saturation 97% 03/05/2024 3:41 PM CDT Inhaled Oxygen Concentration - - Weight 86.2 kg (190 lb) 03/05/2024 3:41 PM CDT Height 182.9 cm (6') 03/05/2024 3:41 PM CDT Body Mass Index 25.77 03/05/2024 3:41 PM CDT Plan of Treatment Upcoming Encounters Date Type Department Care Team (Late st Contact Info) Description 12/30/2024 10:20 AM CDT [facility] Visit [facility] [id number] [address] [place] [id number] [address] Health Maintenance Due Date Last Done Comments Pre-Diabetes and Diabetes Screening 1985 HEPATITIS B VACCINES (2 of 3 - 3-dose series) 10/14/1999 09/16/1999 HPV VACCINES (2 - 3-dose SCD M series) 10/04/2021 09/06/2021 DTAP/TDAP/TD VACCINES (2 - T d or Tdap) 04/29/2023 04/29/2013 INFLUENZA VACCINE (#1) 2023 , 07/21/2022, 05/13/2019, Additional history exists Preventative Visit- Commercial 05/22/2024 0 12/29/2023, 05/13/2019, 03/06/2018, Additional history exists UPPER GI ENDOSCOPY 01/04/2026 01/04/2023, 0 08/18/2021, 11/27/2019, Additional history exists Abdominal Aortic Aneurysm (A AA) Screening Completed 03/13/2018 Medical Devices Implanted Type Area Commercial Portfolio Manager Device Identifier Shelf Expiration Date Model / Serial / Lot Mesh Parietex Progrip Flat t [id number] - [id number] Implanted:Qty : 1 on 03/26/2018 by Edvin Ingram MD at [facility] Mesh Right: Inguinal [employer] - COVIDIEN 08/19/2022 [id number] / / [id number] Mesh Ventralex 1.7in Sm Circ [id number] - [id number] Implanted:Qty : 1 on 03/26/2018 by Edvin Ingram MD at [facility] Mesh N/A: Umbilical CR [employer] [id number] 12/17/2019 [id number] / / [id number] Dental Implant Of Front Teeth Procedures Procedure Name Priority Date/Time Associated Diagnosis Comments US ABDOMEN COMPLETE Routine 03/13/2018 4 :12 PM CDT Epigastric abdominal pain from Last 3 Months or Most Recently Relevant to Health Maintenance Results * US ABDOMEN COMPLETE (03/13/2018 4:12 PM CDT) Anatomical Region Laterality Modality Abdomen Ultrasound 03/13/2018 4:16 PM CDT Impressions 03/13/2018 5:21 PM CDT IMPRESSION: 1. Suspect an umbilical hernia containing bowel demonstrating peristalsis. 2. Borderline splenomegaly. 3. The umbilical hernia appears larger than on the previous CT of the abdomen and pelvis. DICTATION LOCATION: Location [address] [place] [address] 03/13/2018 5:21 PM CDT ULTRASOUND ABDOMEN COMPLETE DATE: 03/13/2018 4:12 PM HISTORY: Epigastric abdominal pain COMPARISON: CT abdomen and pelvis from March 04, 2016. TECHNIQUE: Real time ultrasonography was performed of the complete abdomen including the retroperitoneum. FINDINGS: The visualized liver and pancreas are within normal limits. There is no ascites. There are no pleural effusions. The portal vein shows blood flow toward the liver. The common bile duct is normal. The common bile duct measures 4 mm. No gallstones or gallbladder wall thickening is identified. The aorta and inferior vena cava are within normal limits. Blood flow is documented in the aorta. The right kidney is normal measuring 5.0 x 5.3 x 12.1 cm. The endometrium measures 5.0 x 5.6 x 12.9 cm. The left kidney also shows normal echogenicity and measures 5.6 x 12.9 x 5.0 cm. The spleen is within normal limits measuring 12.8 x 5.8 x 13 cm. The bladder is unremarkable. There is echogenic material consistent with peristalsing bowel in the umbilicus consistent with an umbilical hernia. Procedure Note Jj Gatica MD - 03/13/2018 ULTRASOUND ABDOMEN COMPLETE DATE: 03/13/2018 4:12 PM HISTORY: Epigastric abdominal pain COMPARISON: CT abdomen and pelvis from March 04, 2016. TECHNIQUE: Real time ultrasonography was performed of the complete abdomen including the retroperitoneum. FINDINGS: The visualized liver and pancreas are within normal limits. There is no ascites. There are no pleural effusions. The portal vein shows blood flow toward the liver. The common bile duct is normal. The common bile duct measures 4 mm. No gallstones or gallbladder wall thickening is identified. The aorta and inferior vena cava are within normal limits. Blood flow is documented in the aorta. The right kidney is normal measuring 5.0 x 5.3 x 12.1 cm. The endometrium measures 5.0 x 5.6 x 12.9 cm. The left kidney also shows normal echogenicity and measures 5.6 x 12.9 x 5.0 cm. The spleen is within normal limits measuring 12.8 x 5.8 x 13 cm. The bladder is unremarkable. There is echogenic material consistent with peristalsing bowel in the umbilicus consistent with an umbilical hernia. IMPRESSION: 1. Suspect an umbilical hernia containing bowel demonstrating peristalsis. 2. Borderline splenomegaly. 3. The umbilical hernia appears larger than on the previous CT of the abdomen and pelvis. DICTATION LOCATION: Location [address] [place] [address] us Edvin Ingram MD ORDERABLES Final Result from Last 3 Months or Most Recently Relevant to Health Maintenance Insurance [facility] BLUE ACCESS CHOICE Advance Directives For more information, please contact: [phone] * Full Code (Latest Code Status on File) Date Activated Date Inactivated Comments 08/18/2021 8:19 AM 08/18/2021 11:57 AM * Full Code Date Activated Date Inactivated Comments 09/14/2020 12:12 PM 09/14/2020 4:30 PM * Full Code Date Activated Date Inactivated Comments 11/27/2019 6:53 AM 11/27/2019 10:36 AM * Full Code Date Activated Date Inactivated Comments 03/26/2018 9:40 AM 03/26/2018 4:24 PM * Full Code Date Activated Date Inactivated Comments 03/26/2018 7:36 AM 03/26/2018 9:40 AM Care Teams Engineering Associate Relationship Specialty Start [place] [id number] [address] PCP - General Internal Medicine 01/18/21
[2024-07-06] MEDS: AZITHROMYCIN 250 MG TABLET 500 MG PO (01:36)
[2024-07-06 01:59] LABS: Influenza A QL RT-PCR Negative (Negative); Influenza B QL RT-PCR Negative (Negative); RSV RNA, RT-PCR Negative (Negative); SARS-CoV-2 RNA PCR Negative (Negative)
[2024-07-06] MEDS: OFLOXACIN 0.3% OPHTH SOLN 5 ML BTL 1 DROP EACH EYE (02:05)
== END 2024-07-06 02:10 | disposition home or self-care (01) ==
LOC: ANHED 01:33
PROVIDERS: Physician Assistant; Emergency Provider Emergency Medicine
DX: H10.9 Unspecified conjunctivitis (principal); H66.92 Otitis media, unspecified, left ear; Z20.822 Contact with and (suspected) exposure to COVID-19
CPT/HCPCS: 87637; 99283; A9270